=== PATIENT | male | born 1985 | race Caucasian/White ===

== ENCOUNTER 2021-11-18 23:46 | Emergency (ER) | payer BC, OTHER ==
[~2021-11-18] VITALS: Ht 162.6 cm; Wt 77.1 kg
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
[2021-11-19] MEDS ORDERED: FLUORESCEIN SODIUM OPHTH 1 EA STRIP ONE (00:07)
[2021-11-19] MEDS ORDERED: ACETAMINOPHEN 325 MG TABLET ONE (00:10)
--- NOTE | 2021-11-19 00:10 | NUR ---
18G IV LINE ESTABLISHED AT [facility]. BLOOD DRAWN AND SENT TO LAB.
--- NOTE | 2021-11-19 00:20 | NUR ---
URINE COLLECTED AND SENT TO LAB.
[2021-11-19] MEDS ORDERED: IV NS 0.9% 500 ML IV ONE (00:28)
[2021-11-19] MEDS ORDERED: IOHEXOL-300 100 ML VIAL IV ONE (00:28)
[2021-11-19] MEDS ORDERED: CT SWABBABLE VALVE TRANS SET 1 EA INFUS.SET MC ONE (00:28)
[2021-11-19] MEDS ORDERED: ACETAMINOPHEN 325 MG TABLET PO ONE (00:30)
[2021-11-19] MEDS ORDERED: TETRACAINE HCL 0.5% OPHTALMIC 15 ML BOTTLE OP ONE (00:30)
[2021-11-19 00:40] LABS: BASOPHILS # (AUTO) 0.1 K/uL (0.0-0.2); BASOPHILS % (AUTO) 0.7 % (0.0-2.0); EOSINOPHILS % (AUTO) 0.3 % (0.0-6.0); HEMATOCRIT 44 % (39-51); HEMOGLOBIN 14.1 g/dL (13.5-17.5); LYMPHOCYTES # (AUTO) 3.1 K/uL (0.8-4.8); LYMPHOCYTES % (AUTO) 37.1 % (20.0-44.0); MEAN CORPUSCULAR HGB CONC 32 g/dl (31.0-36.0); MEAN CORPUSCULAR VOLUME 79 fL (80-96); MONOCYTES # (AUTO) 0.7 K/uL (0.1-1.30); MONOCYTES % (AUTO) 8.4 % (2.0-12.0); NEUTROPHILS # (AUTO) 4.4 K/uL (1.8-8.9); NEUTROPHILS % (AUTO) 53.5 % (43.0-81.0); PLATELET COUNT (AUTO) 278 K/uL (150-450); RED BLOOD CELL COUNT(AUTO) 5.51 MIL/uL (4.5-6.0); WHITE BLOOD COUNT (AUTO) 8.3 K/uL (4.3-11.0)
--- NOTE | 2021-11-19 00:45 | NUR ---
PT BEING TRANSPORTED TO [place] [facility]IA [facility].
--- NOTE | 2021-11-19 00:59 | NUR ---
PT RETURNED FROM CT SCAN
--- NOTE | 2021-11-19 01:25 | NUR ---
RASHMI BERRY [facility] CALLED FOR HIGHER LEVEL OF CARE.
[2021-11-19 01:32] LABS: CALCIUM, SERUM 8.5 mg/dL (8.5-10.1); CREATININE 0.7 mg/dL (0.6-1.3); POTASSIUM 3.1 mmol/L (3.5-5.1)
[2021-11-19] MEDS ORDERED: ONDANSETRON HCL/PF 4 MG/2 ML VIAL ONE (01:33)
[2021-11-19 01:38] LABS: ALBUMIN 3.5 g/dL (3.4-5.0); BILIRUBIN,DIRECT 0.1 mg/dL (0.0-0.2); BILIRUBIN,TOTAL 0.5 mg/dL (0.2-1.0); TOTAL PROTEIN, SERUM 7.3 g/dL (6.4-8.2)
[2021-11-19] MEDS ORDERED: MORPHINE SULFATE INJ 4 MG/ML DISP.SYRIN ONE (01:44)
--- NOTE | 2021-11-19 01:55 | NUR ---
CALL KEVIN BERRY [facility]. STILL PENDING MD CALL BACK.
--- NOTE | 2021-11-19 01:57 | NUR ---
PER JENNY AT [facility] THEY HAVE NO CAPACITY TO TAKE THIS CASE
[2021-11-19] MEDS ORDERED: METOCLOPRAMIDE HCL 10 MG/2 ML VIAL IV ONE (02:00)
[2021-11-19] MEDS ORDERED: ONDANSETRON HCL/PF 4 MG/2 ML VIAL IV ONE (02:00)
[2021-11-19] MEDS ORDERED: MORPHINE SULFATE INJ 2 MG/ML DISP.SYRIN IV ONE (02:00)
--- NOTE | 2021-11-19 02:01 | NUR ---
[facility] CALLED FOR HIGHER LEVEL OF CARE. NO ONCALL OPTHALMOLOGY
[2021-11-19 02:08] LABS: BILIRUBIN,URINE NEGATIVE (NEGATIVE); COLOR,URINE YELLOW (YELLOW); LEUKOCYTE ESTERASE ,URINE NEGATIVE (NEGATIVE); NITRITE, URINE NEGATIVE (NEGATIVE); PROTEIN,URINE NEGATIVE (NEGATIVE); UGLUCOSE NEGATIVE (NEGATIVE); UROBILINOGEN,URINE 0.2 EU/dL (0.2)
[2021-11-19 02:57] LABS: BACTERIA,URINE None seen /HPF (None Seen); RBC,URINE 0-2 /HPF (0-2); SQUAMOUS EPITHELIAL CELL,UR None Seen /HPF (None Seen); WBC,URINE 0-2 /HPF (0-3)
--- NOTE | 2021-11-19 03:18 | NUR ---
CALL KEVIN BERRY [facility]. AWAITING MD TO CALL.
--- NOTE | 2021-11-19 03:45 | NUR ---
IS THE NUMBER FOR REPORT TO [facility]. ACCEPTING MD IS DR EDELMIRA WEAVER, [address] [place] [id number]. ARRANGING FOR TRANSPORT.
--- NOTE | 2021-11-19 03:51 | NUR ---
PT WILL BE TRANSPORTED TO [facility] ER IN 30 TO 40 MINS VIA [facility] PER DISPATCH.
--- NOTE | 2021-11-19 04:00 | NUR ---
REPORT GIVEN TO TAYLOR
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
[2021-11-19 04:32] VITALS: BP 126/77
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
== END 2021-11-19 04:48 | disposition short-term general hospital (02) ==
LOC: ER 23:51
DX: S05.92XA Unspecified injury of left eye and orbit, initial encounter (principal); S05.02XA Injury of conjunctiva and corneal abrasion without foreign body, left eye, initial encounter; V43.52XA Car driver injured in collision with other type car in traffic accident, initial encounter; Y92.414 Local residential or business street as the place of occurrence of the external cause; F10.129 Alcohol abuse with intoxication, unspecified; Y90.8 Blood alcohol level of 240 mg/100 ml or more; E87.6 Hypokalemia; Z20.822 Contact with and (suspected) exposure to COVID-19
CPT/HCPCS: 36415; 70450; 70480; 71045; 72125; 80048; 80076; 80307; 80320; 81001; 82550; 85025; 86850; 87426; 96374; 96375; 99291; C9803; J2270; J2405; J2765; J7040; L0172; Q9967; G0480